=== PATIENT | male | born 1965 | race Caucasian/White ===

== ENCOUNTER 2022-06-19 01:18 | Emergency (ER) | payer OTHER ==
[~2022-06-19] VITALS: Ht 175.3 cm; Wt 95.3 kg
[2022-06-19 01:35] VITALS: BP 145/78
--- NOTE | 2022-06-19 01:35 | NUR ---
Dr. Epstein examining patient.
[2022-06-19] MEDS ORDERED: NACL 0.9% 1,000 ML IV SCH (01:45)
[2022-06-19] MEDS ORDERED: KETOROLAC 30 MG/ML VIAL IVP ONE (01:45)
[2022-06-19] MEDS ORDERED: ONDANSETRON 4 MG/2 ML VIAL IVP ONE (01:45)
--- NOTE | 2022-06-19 02:06 | NUR ---
Patient taken to CT scan via WC.
--- NOTE | 2022-06-19 02:29 | NUR ---
Blood for labwork drawn from left arm per dietitian teacher. Patient tolerated well.
[2022-06-19 02:57] LABS: BASOPHILS # (AUTO) 0.1 K/uL (0.00-0.22); BASOPHILS % (AUTO) 0.6 % (0.0-2.0); EOSINOPHILS # (AUTO) 0.1 K/uL (0-0.4); EOSINOPHILS % (AUTO) 0.6 % (0.0-4.0); HEMATOCRIT 43.5 % (36-52); HEMOGLOBIN 14.6 g/dL (12.0-18.0); LYMPHOCYTES # (AUTO) 0.9 K/uL (2.0-11.5); LYMPHOCYTES % (AUTO) 6.1 % (20.5-51.1); MEAN CORPUSCULAR HEMOGLOBIN 29 pg (27-31); MEAN CORPUSCULAR HGB CONC 34 g/dL (33-37); MEAN CORPUSCULAR VOLUME 86.9 fL (80-94); MONOCYTES # (AUTO) 0.6 K/uL (0.8-1.0); MONOCYTES % (AUTO) 3.9 % (1.7-9.3); NEUTROPHILS # (AUTO) 13.1 K/uL (1.8-7.7); NEUTROPHILS % (AUTO) 88.8 % (42.2-75.2); PLATELET COUNT (AUTO) 231 K/uL (140-450); RED BLOOD CELL COUNT(AUTO) 5.01 MIL/uL (4.20-6.10); RED CELL DISTRIBUTION WIDTH 13.8 % (11.6-13.7); WHITE BLOOD COUNT (AUTO) 14.7 K/uL (4.8-10.8)
[2022-06-19 03:09] LABS: ALBUMIN 3.8 g/dL (3.4-5.0); ANION GAP 11.7 (8-16); CARBON DIOXIDE 29.4 mmol/L (21-32); CREATININE 1.3 mg/dL (0.6-1.3); POTASSIUM 4.1 mmol/L (3.5-5.1); TOTAL BILIRUBIN 0.4 mg/dL (0.0-1.0)
--- NOTE | 2022-06-19 03:27 | NUR ---
Dr. Epstein explained results and treatment plans.
[2022-06-19] MEDS ORDERED: MORPHINE SULFATE 2 MG/ML SYR IVP ONE (03:30)
[2022-06-19] MEDS ORDERED: KETO10TA2 PO (03:32)
[2022-06-19] MEDS ORDERED: TAMS0.4C96 PO (03:32)
[2022-06-19 04:20] VITALS: BP 178/104
--- NOTE | 2022-06-19 04:20 | NUR ---
Patient discharged with v/s stable. Written and verbal after care instructions given and explained. Patient verbalized understanding. Ambulatory with steady gait. All questions addressed prior to discharge. Advised to follow up with PMD.
--- NOTE | 2022-06-19 04:20 | NUR ---
The patient's care was reviewed and supervised by Lavonne Dutta RN.
== END 2022-06-19 04:20 | disposition home or self-care (01) ==
LOC: MED 01:19
DX: N20.1 Calculus of ureter (principal); R11.2 Nausea with vomiting, unspecified; F17.210 Nicotine dependence, cigarettes, uncomplicated; Z79.899 Other long term (current) drug therapy; Z71.6 Tobacco abuse counseling
CPT/HCPCS: 36415; 74176; 80053; 85025; 96361; 96374; 96375; 99284; J1885; J2270; J2405; J7030